=== PATIENT | female | born 1995 | race Caucasian/White ===

== ENCOUNTER → 2017-01-03 12:20 | Observation (INO) ==
[2017-01-03 11:29] LABS: Bilirubin,Urine Negative (Negative); Blood,Urine Negative (Negative); Clarity,Urine Cloudy (Clear); Color,Urine Dark Yellow (Yellow); Glucose,Urine (UA) Normal (Normal); Ketones,Urine Negative (Negative); Leukocyte Esterase,Urine Moderate (Negative); Nitrite,Urine Negative (Negative); Protein,Urine Trace mg/dL (Neg-Trace); Specific Gravity,Urine 1.028 (1.010-1.025); Urobilinogen,Urine Normal (Normal)
[2017-01-03 11:32] LABS: Bacteria,Urine Many per hpf (None-Few); Squamous Epithelial Cell,Urine Many per lpf (None-Few); WBC,Urine 50-100 per hpf (0-3)
[2017-01-03 11:58] LABS: RBC,Urine 0-3 per hpf (0-3)
[2017-01-03 11:59] LABS: Mucus,Urine Moderate (Few)
--- NOTE | 2017-01-03 12:09 | OB/GYN Progress Note ---
Date of Encounter: 01/03/17 Time of Encounter: 12:06 - Assessment and Plan (1) Acute cystitis during in second trimester Current Visit: Yes Status: Acute SSE reveals physiologic appearing discharge in the vaginal vault. SVE closed and thick. UA with moderate leukocytes, WBC's, and bacteria. I suspect her abdominal pain and leaking are related to a cystitis at this time. Rx Keflex. Discharge home with PTL and pyelonephritis precautions. (2) 26 weeks gestation of Current Visit: Yes Status: Acute Subjective - Subjective Principal diagnosis: leaking/ abdominal pain Interval history: 21 year-old presenting at 26 weeks gestation with c/o small amount leaking fluid/ vaginal discharge and intermittent sharp abdominal pains. She reports she woke during the night with the pain and that it is on both sides of her lower abdomen. She denies cramping or vaginal bleeding. Good FM. She states the leaking has been enough to cause her to wear a pad. No other complaints at this time. Antepartum ROS: loss of fluid, movement normal, no vaginal bleeding, no contractions Objective - Vital Signs Vital Signs: Intake and Output 01/02/17 01/03/17 01/03/17 23:59 07:59 15:59 Other: Weight 87.7 kg Patient Weight 01/03/17 23:59 Weight 87.7 kg - Exam FHR: auscultation normal FHR comments: FHT reassuring for GA Auscultation: bilateral: normal Abdomen: Present: soft Uterus: Present: normal. Absent: tenderness Cervical dilation: closed Cervix effacement: thick station: high Comments: SSE with small amount thin, white discharge in vaginal vault. FFN collected. negative nitrazine, negative pool, negative fern. - Labs Labs: Abnormal lab results Urine Clarity Cloudy (Clear) A 01/03/17 10:38 Ur Specific [place] 1.028 (1.010-1.025) H 01/03/17 10:38 Ur Leukocyte Esterase Moderate (Negative) H 01/03/17 10:38 Urine Microscopic WBC 50-100 per hpf (0-3) H 01/03/17 10:38 Ur Squamous Epith Cells Many per lpf (None-Few) H 01/03/17 10:38 Urine Bacteria Many per hpf (None-Few) H 01/03/17 10:38 Urine Mucus Moderate (Few) H 01/03/17 10:38 Ur Culture Indicated? YES (NO) A 01/03/17 10:38
== END | disposition home or self-care (01) ==
LOC: 1NENULAB
PROVIDERS: ADMIT Obstetrics & Gynecology; ATTEND Obstetrics & Gynecology

== ENCOUNTER → 2017-02-11 15:59 | Observation (INO) ==
--- NOTE | 2017-02-11 15:25 | Discharge Summary ---
Date of Encounter: 02/11/17 Time of Encounter: 15:26 - Discharge Diagnosis (1) 31 weeks gestation of Priority: Primary Status: Acute Comments: Patient admitted for observation - Discharge Medications Home Medications: Vitamins 1 tab PO DAILY 01/03/17 [History] HydrOXYzine Pamoate [Vistaril] 25 mg PO DAILY 02/11/17 [History] Allergies/Adverse Reactions: Allergies No Known Allergies Allergy (Verified 02/11/17 15:00) Date of admission: 02/11/17 14:32 Primary care physician: Malick Valles CNP Discharging clinician: Doretha Garcia Anticipated date of discharge: 02/11/17 - Patient Status Disposition: Home, Self-Care Condition: Good Functional capacity at discharge: independent ambulation - Discharge Instructions Follow Up With: Malick Valles CNP [Primary Care Provider] - - Diet and Activity Activity: increase activity as tolerated Diet: regular diet 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 Patient reports she fell back on her butt, did not hit her abdomen. Patient reports +FM. Denies LOF of Vaginal bleeding. No bruising or tenderness noted on exam. Time Attestation: Total time spent providing and/or coordinating discharge services: Time Spent: Less than 30 minutes Exam - Constitutional General appearance IM: A&O X 3, pleasant, answers questions appropriately - Respiratory Respiratory exam: Present: CTAB - Cardiovascular Cardiovascular exam IM: Present: RRR, +S1, +S2 - GI/Abdominal GI/Abdominal exam IM: normal bowel sounds, soft Additional comments: No bruising noted - Extremities Exam Extremities exam IM: Present: full ROM (135 bpm moderate variability +15x15 accels no decels noted. No contractions. RNST. ), normal capillary refill - VTE Reasons for not Prescribing Prophylaxis: Treatment not Indicated - Low risk for VTE
[2017-02-11 15:28] LABS: Bilirubin,Urine Negative (Negative); Blood,Urine Negative (Negative); Clarity,Urine Cloudy (Clear); Color,Urine Yellow (Yellow); Glucose,Urine (UA) Normal (Normal); Ketones,Urine Negative (Negative); Leukocyte Esterase,Urine Small (Negative); Nitrite,Urine Negative (Negative); PH,Urine 6.5 pH Units (5.0-8.0); Protein,Urine Negative (Neg-Trace); Specific Gravity,Urine 1.019 (1.010-1.025); Urobilinogen,Urine Normal (Normal)
[2017-02-11 15:30] LABS: Bacteria,Urine Moderate per hpf (None-Few); Hyaline Casts,Urine None Seen per lpf (None-Few); Squamous Epithelial Cell,Urine Many per lpf (None-Few); WBC,Urine 15-30 per hpf (0-3)
[2017-02-11 15:57] LABS: RBC,Urine 0-3 per hpf (0-3)
== END | disposition home or self-care (01) ==
LOC: 1NENULAB
PROVIDERS: ADMIT Obstetrics & Gynecology; ATTEND Obstetrics & Gynecology

== ENCOUNTER 2017-04-11 17:27 | Inpatient (IN) ==
[2017-04-11 17:05] LABS: Bilirubin,Urine Negative (Negative); Blood,Urine Negative (Negative); Clarity,Urine Cloudy (Clear); Color,Urine Dark Yellow (Yellow); Glucose,Urine (UA) Normal (Normal); Ketones,Urine Negative (Negative); Leukocyte Esterase,Urine Large (Negative); Nitrite,Urine Negative (Negative); Protein,Urine Negative (Neg-Trace); Specific Gravity,Urine 1.014 (1.010-1.025); Urobilinogen,Urine Normal (Normal)
[2017-04-11 17:07] LABS: Bacteria,Urine Many per hpf (None-Few); Immature Granulocytes % 0.7 % (0-4); Immature Platelets 28.2 % (1.1-6.1); Monocytes % 7.1 %; Squamous Epithelial Cell,Urine Many per lpf (None-Few); WBC,Urine TNTC per hpf (0-3)
[2017-04-11 17:11] LABS: Basophils % 0.2 %; Eosinophils # 0.1 K/mcL (0.0-0.6); Eosinophils % 0.6 %; Hemoglobin 13.2 g/dL (11.5-15.4); Lymphocytes # 1.4 K/mcL (0.6-4.6); Lymphocytes % 12.2 %; Mean Corpuscular HGB Conc 33.8 g/dL (31.6-35.5); Mean Corpuscular Hemoglobin 29.9 pg (28.0-33.3); Mean Corpuscular Volume 88.2 fL (83.0-100.0); Monocytes # 0.8 K/mcL (0.0-1.3); Platelet Count 142 K/mcL (140-400); Red Blood Count 4.42 M/mcL (3.82-4.97); Red Cell Distribution Width 15.3 % (11.5-14.5); Segmented Neutrophils % 79.2 %
[2017-04-11 17:12] LABS: Amphetamine Screen,Urine Negative ng/mL (Cutoff=1000); Barbiturate Screen,Urine Negative ng/mL (Cutoff=200); Benzodiazepines Screen,Urine Negative ng/mL (Cutoff=200); Cannabinoid Screen,Urine Negative ng/mL (Cutoff = 50); Cocaine Screen,Urine Negative ng/mL (Cutoff= 300); Opiate Screen,Urine Negative ng/mL (Cutoff=300); Phencyclidine Screen,Urine Negative ng/mL (Cutoff=25)
[2017-04-11 17:22] LABS: RBC,Urine 0-3 per hpf (0-3)
[~2017-04-11 17:27] MED LIST: Famotidine 20 MG/2 ML VIAL IVP PRN; Metoclopramide 10 MG/2 ML VIAL IVP PRN; Naloxone 0.4 MG/ML INJ IVP PRN; Ondansetron 4 MG/2 ML VIAL IVP PRN; Ringers Solution, Lactated 1,000 ML ONE
[2017-04-11 17:30] LABS: Large Platelets Present (Not Present); Platelet Estimate Normal (Normal); Reactive Lymphocytes Present (Not Present)
[2017-04-11] MEDS ORDERED: miSOPROStol 25 MCG TABLET PO PRN (17:38)
--- NOTE | 2017-04-11 17:43 | OB/GYN History & Physical ---
Date of Encounter: 04/11/17 Time of Encounter: 17:39 Assessment and Plan (1) 40 weeks gestation of Current visit: Yes Status: Acute (2) Non-reassuring heart rate or rhythm affecting management of fetus Current visit: Yes Status: Acute FHT have now improved but will admit for IOL given prolonged deceleration at 40 weeks. Plan for cytotec PO. GBS negative. Epidural when needed. AROM when able. Anticipate . History of Present Illness HPI: Ms. Hazel is a 21 year old female presenting at 40 weeks with initial complaint of increased mucus discharge. Initially on FHT tracing there was a prolonged decleration. IV fluid bolus given and tracing has improved but decision made to keep pt for IOL due to being 40 weeks with deceleration on tracing. Blood type O positive. Rubella immune Serologies and GBS negative. complicated by obesity. Past Med Surg Social Fam HX - Past Medical History Medical history: no medical history Psychiatric history: anxiety, bipolar, depression - Past Surgical History Surgical History: other - Social History Smoking Status: Never smoker Smokeless Tobacco Status: No Alcohol use: none Drug use: none - Family History Mother History Unknown: Yes Adopted: No Living Status: Still Living Hx Family Cardiac Disorders: No Hx Family Respiratory Disorders: Yes (COPD) Hx Family Cancer: No Hx Family GI Disorders: No Hx Family Endocrine Disorder: No Hx Family Neuromuscular Disorders: No Hx Family Neurologic Disorders: No Hx Family HEENT Disorders: No Hx Family Autoimmune Disorders: No Obstetrical History - Pregnancies : 1 Medications and Allergies Vitamins 1 tab PO DAILY 01/03/17 [History] HydrOXYzine Pamoate [Vistaril] 25 mg PO DAILY 02/11/17 [History] Fluoxetine 20 mg PO DAILY 04/01/17 [History] 3 Allergy/AdvReac Type Severity Reaction Status Date / Time No Known Allergies Allergy Verified 02/11/17 15:00 Review of System OB All systems PM: reviewed and no additional remarkable complaints except as stated Exam - Constitutional Constitutional: well developed, well nourished, no acute distress - HEENT HEENT: Mucus Membranes Moist - Lungs Respiratory exam: CTAB - Cardiovascular Cardiovascular exam: RRR, +S1, +S2 - Abdomen Abdomen: Present: gravid, non tender - Extremities Extremities exam: normal inspection - Vagina Vagina: Present: normal moisture - Cervix Dilation: 2 Effacement: 80 Station: -2 - Anus/Rectum Anus/Rectum: Present: normal perianal skin Results Result Diagrams: 04/11/17 16:14 Abnormal lab results WBC 11.4 K/mcL (4.3-11.1) H 04/11/17 16:14 RDW 15.3 % (11.5-14.5) H 04/11/17 16:14 Neutrophils # 9.0 K/mcL (1.6-8.9) H 04/11/17 16:14 Reactive Lymphocytes Present (Not Present) A 04/11/17 16:14 Large Platelets Present (Not Present) A 04/11/17 16:14 Immature Plt Fraction 28.2 % (1.1-6.1) H 04/11/17 16:14 Urine Clarity Cloudy (Clear) A 04/11/17 16:14 Ur Leukocyte Esterase Large (Negative) H 04/11/17 16:14 Urine Microscopic WBC TNTC per hpf (0-3) H 04/11/17 16:14 Ur Squamous Epith Cells Many per lpf (None-Few) H 04/11/17 16:14 Urine Bacteria Many per hpf (None-Few) H 04/11/17 16:14 Ur Culture Indicated? YES (NO) A 04/11/17 16:14 All other labs normal. - VTE Reasons for not Prescribing Prophylaxis: Treatment not Indicated - Low risk for VTE
[2017-04-11] MEDS ORDERED: Ringers Solution, Lactated 1,000 ML ONE (19:23)
[2017-04-11] MEDS ORDERED: *HR* Nalbuphine 20 MG/ML AMPUL IVP PRN (21:31)
--- NOTE | 2017-04-11 21:40 | OB Labor Progress Note ---
Date of Encounter: 04/11/17 Time of Encounter: 21:38 Labor Progress Note - Subjective Subjective: Pt sleeping prior to this CNM entering room. - Cervix Cervix: 2-3/80/-2 - Heart Tones Heart Tones: Category I - [place]: irregular UC - Plan Plan: Will continue with cytotec for IOL. AROM when able. Epidural when needed. Anticipate .
[2017-04-11] MEDS ORDERED: Ondansetron 4 MG/2 ML VIAL IVP PRN (22:18)
[2017-04-11] MEDS ORDERED: Bupivacaine-MPF 0.25% 10 ML VIAL EP ONE (22:18)
[2017-04-11] MEDS ORDERED: Naloxone 0.4 MG/ML INJ IVP PRN (22:18)
[2017-04-11] MEDS ORDERED: *HR* FentaNYL (PF) 100 MCG/2 ML VIAL EP ONE (22:18)
--- NOTE | 2017-04-11 22:22 | Anesthesia Evaluation PreOp ---
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 ATTENDANT History: Denies Any Significant HX Other Medical History: Denies Any Significant HX, Other (Depression, bipolar, anxiety) Anesthesia History: No Prior Anesthetic Complications, Past Anesthesia ( tonsillectomy) : Yes Alcohol Use: none Drug use: none Medications and Allergies Vitamins 1 tab PO DAILY 01/03/17 [History] HydrOXYzine Pamoate [Vistaril] 25 mg PO DAILY 02/11/17 [History] Fluoxetine 20 mg PO DAILY 04/01/17 [History] 3 Allergy/AdvReac Type Severity Reaction Status Date / Time No Known Allergies Allergy Verified 02/11/17 15:00 - Meds/Allergy Pre-op Review Medications Reviewed: Yes Allergies Reviewed: Yes Beta Blockers on Current Med List: No Anesthesia Results - Labs 04/11/17 16:14 Anesthesia Exam BP 119/78 P 96 T 97.9 R 16 Height: 5'0" Weight: 92.7kg NPO (# of Hours): 5 Pain Scale: 6 Pain Scale Used: Numeric (1 - 10) - HEENT Pupil (Motor): Pupils equal Mallampati: II Teeth: Normal Oral Opening: Greater than 3 - DRUM ATTENDANT LOC: Oriented DRUM ATTENDANT Motor: Normal RUE, Normal LUE, Normal RLE, Normal LLE, Normal Face DRUM ATTENDANT Sensory: Normal: RUE, LUE, RLE, LLE, Face - Cardiac Rhythm: Regular Murmur: None JVD: No Carotid Bruit: No - Pulmonary Breath Sounds: bilateral Clear Respiratory Effort: Symmetrical Anesthesia Assess/Plan ASA Score: 2 Modified [place] Scale for Level of Consciousness: Cooperative, oriented, and tranquil Anesthetic Plan: Regional Autologous Blood: No Monitoring Plan: Standard Monitors Recovery Plan: Other
[2017-04-11] MEDS ORDERED: *HR* FentaNYL (PF) 100 MCG/2 ML VIAL ONE (22:26)
[2017-04-11] MEDS ORDERED: Epidural Premix (fent/bupiv) 110 ML EP ONE (22:28)
[2017-04-11] MEDS ORDERED: Bupivacaine-MPF 0.25% 10 ML VIAL ONE (22:28)
[2017-04-11] MEDS ORDERED: Epidural Premix (fent/bupiv) 110 ML EP SCH (22:30)
--- NOTE | 2017-04-12 00:26 | Anesthesia Procedures ---
Date of Encounter: 04/12/17 Time of Encounter: 23:31 Procedures: Anesthesia - Epidural/Spinal Patient ID/Chart reviewed: Yes Patient examined: Yes OB Eval: Gestational age: 40 weeks OB Eval: : 1 OB Eval: Hx Para: 0 OB Eval: Dilated at (cm): 3 OB Eval: Contractions: Non-stressed pattern Consent Obtained: Yes Supplemental Oxygen: None/Room Air Site Prep: Aseptic Technique, Sterile prep and drape, Povidone-Iodine 1% Patient position: upright Local Anesthetic: Lidocaine 1% Amount of Local Anesthetic used: 3 Touhy Needle Gauge: 18 Touhy Needle Depth (cm): 7 Catheter Depth at Skin (cm): 15 Test Dose (1.5% Lido + Epi): Volume given (mls): 3 Test Dose Result: Negative Loading Dose: 0.25% Marcaine (mls): 10 Loading Dose: Fentanyl (mcg): 100 Loading Dose Administered: Thru Catheter Infusion Med: 0.125% Bupivacaine w/ 2 mcg/ml Fentanyl Infusion Rate (mls/hr): [address]: Tegaderm, Tape Interspace Used: L4-L5 Loss of Resistance (ANDREW): Yes Blood: No CSF: No Paresthesia: No Procedure: JEFFREY successfully placed 2nd pass. 1st pass ANDREW but difficulty threading catheter. 2nd attempt ANDREW and catheter thread with ease. No immediate complications noted. Negative test dose. VSS and FHT stable throughout. Vitals + FHT's: 2331 BP 119/78 P 96 R 16 0012 BP 115/71 P 79 R 16 FHT 140s
[2017-04-12] MEDS ORDERED: Oxytocin 20 units/ LR 1000 mL 20 UNIT/1,000 ML BAG IVC SCH ×2 (00:30→13:20)
--- NOTE | 2017-04-12 00:44 | OB Labor Progress Note ---
Date of Encounter: 04/12/17 Time of Encounter: 00:43 Labor Progress Note - Subjective Subjective: Pt comfortable with epidural. - Cervix Cervix: 4/80/-2 - Heart Tones Heart Tones: Category I - [place]: 2-3 minutes - Interventions Interventions: AROM for scant amount blood tinged fluid - Plan Plan: COntinue to monitor. Begin Pitocin augmentation. Frequent position changes. Anticipate .
[2017-04-12] MEDS: Ringers Solution, Lactated 1,000 ML IVC SCH ×2 (00:53→08:23)
[2017-04-12] MEDS ORDERED: ROPIVACAINE HCL/PF 0.5% 30 ML VIAL ONE (03:54)
[2017-04-12] MEDS ORDERED: *HR* FentaNYL (PF) 100 MCG/2 ML VIAL ONE (03:55)
[2017-04-12] MEDS ORDERED: Epidural Premix (fent/bupiv) 110 ML EP ONE (06:01)
--- NOTE | 2017-04-12 10:29 | OB Labor Progress Note ---
Date of Encounter: 04/12/17 Time of Encounter: 10:27 Labor Progress Note - Subjective Subjective: Patient reports feeling pressure. Patient pushing with contractions. - Heart Tones Heart Tones: 125 bpm moderate variability - [place]: 2-3 min apart - Interventions Interventions: Patient pushing with contractions. RN at bedside. - Plan Plan: Continue pushing with contractions.
[2017-04-12] MEDS ORDERED: Lidocaine 1% 20 ML MDV ONE (10:56)
--- NOTE | 2017-04-12 11:47 | OB/GYN Procedure Note ---
Delivery - Delivery Date: 04/12/17 Provider: Doretha Garcia Intrapartum events: none Delivery induction: AROM, oxytocin, misoprostol Delivery monitor: external FHT, external uterine, internal uterine Anesthesia: local, epidural Estimated Blood Loss: 300 - Infant (s) Infant A Delivery Date: 04/12/17 Infant Delivery Time: 11:01 Presentation: vertex Position: NUVIA Route of delivery: Gender: Female Viability: Viable Pounds: 8 Ounces: 6 at 1 minute: 8 at 5 mins: 9 Shoulder Dystocia: not encountered Specimens collected: cord blood Placenta: spontaneous Cord: 3 umbilical vessels - Repair Episiotomy: none Laceration Description: Periurethral (left periurethral repaired with 4-0 vicryl ), Perineal - 2nd Degree (repaired with 3-0 vicryl) - Complications Delivery complications: none - Disposition Mom disposition: stable in LDR [place] disposition: stable in LDR - Comments Comments: Called to LDR patient complete and has been pushing with RN. Patient was in stirrups and prepped for vaginal delivery. Under maternal effort patient spontaneously delivered a viable female over a second degree perineal laceration. Infant placed on maternal abdomen. Cord was clamped and cut after pulsation ceased. Second degree laceration repaired with 3-0 vicryl. Cord blood was collected. Spontaneous delivery of intact placenta. A left periuretheral was repaired with 4-0 vicryl. Patient tolerated well. 300 EBL. All counts correct. placed skin to skin. Both Mother and stable in LDR for recovery.
[2017-04-12] MEDS ORDERED: Benzocaine/Menthol 56 GM AEROSOL SPRAY TP PRN (13:20)
[2017-04-12] MEDS ORDERED: *HR* HYDROcodone/Acet 5/325 mg TABLET PO PRN (13:20)
[2017-04-12] MEDS ORDERED: Lanolin 7 G OINT...G. TP PRN (13:20)
[2017-04-12] MEDS ORDERED: Measles/Mumps/Rubella Vacc 0.5 ML VIAL SQ PRN (13:20)
[2017-04-12] MEDS ORDERED: Acetaminophen 325 MG TABLET PO PRN (13:20)
[2017-04-12] MEDS: Ibuprofen 600 MG TABLET PO PRN (15:12)
[2017-04-13] MEDS: Ibuprofen 600 MG TABLET PO PRN (06:28)
--- NOTE | 2017-04-13 08:46 | Discharge Summary ---
Date of Encounter: 04/13/17 Time of Encounter: 08:50 - Discharge Medications Home Medications: Vitamins 1 tab PO DAILY 01/03/17 [History] HydrOXYzine Pamoate [Vistaril] 25 mg PO DAILY 02/11/17 [History] Fluoxetine 20 mg PO DAILY 04/01/17 [History] Allergies/Adverse Reactions: 3 Allergy/AdvReac Type Severity Reaction Status Date / Time No Known Allergies Allergy Verified 02/11/17 15:00 Data Procedures and tests throughout hospitalization: Laboratory Tests 04/11/17 04/11/17 04/11/17 16:14 16:14 16:14 WBC 11.4 H RBC 4.42 Hgb 13.2 Hct 39.0 MCV 88.2 MCH 29.9 MCHC 33.8 RDW 15.3 H Plt Count 142 MPV TNP Immature Gran % 0.7 Seg Neutrophils % 79.2 Lymphocytes % 12.2 Monocytes % 7.1 Eosinophils % 0.6 Basophils % 0.2 Neutrophils # 9.0 H Lymphocytes # 1.4 Monocytes # 0.8 Eosinophils # 0.1 Basophils # 0.0 Reactive Lymphocytes Present A Platelet Estimate Normal Large Platelets Present A Immature Plt Fraction 28.2 H Urine Color Dark Yellow Urine Clarity Cloudy A Urine pH 6.0 Ur Specific [place] 1.014 Urine Protein Negative Urine Glucose (UA) Normal Urine Ketones Negative Urine Blood Negative Urine Nitrite Negative Urine Bilirubin Negative Urine Urobilinogen Normal Ur Leukocyte Esterase Large H Urine Microscopic RBC 0-3 Urine Microscopic WBC TNTC H Ur Squamous Epith Cells Many H Urine Bacteria Many H Ur Culture Indicated? YES A Urine Opiates Screen Negative Ur Barbiturates Screen Negative Ur Phencyclidine Scrn Negative Ur Amphetamines Screen Negative U Benzodiazepines Scrn Negative Urine Cocaine Screen Negative U Marijuana (THC) Screen Negative Date of admission: 04/11/17 17:27 Primary care physician: PCP NONE Consults: 04/12/17 13:20 Consult to Gear Inspector [CONS] Routine Comment: Vaginal delivery, consult needed Consult to Assembler Utility Buildings [CONS] Routine Reason for SW Consult: mother during , transportation issues Discharging clinician: Earl Haines Anticipated date of discharge: 04/13/17 - Discharge Instructions Follow Up With: NONE,PCP [Primary Care Provider] - Hospital Course Episiotomy: none Time Attestation: Total time spent providing and/or coordinating discharge services: - VTE Reasons for not Prescribing Prophylaxis: Treatment not Indicated - Low risk for VTE Exam - Constitutional Vitals: Temp Pulse Resp BP Pulse Ox 98 F 97 20 99/59 97 04/13/17 06:38 04/13/17 06:38 04/13/17 06:38 04/13/17 06:38 04/13/17 06:38
--- NOTE | 2017-04-13 08:50 | Discharge Summary ---
Date of Encounter: 04/13/17 Time of Encounter: 08:30 - Discharge Diagnosis (1) Status post vaginal delivery Priority: Primary Status: Acute - Discharge Medications Prescriptions: Ibuprofen [Motrin] 600 mg PO Q6HR PRN #30 tablet PRN Reason: Cramping Home Medications: Vitamins 1 tab PO DAILY 01/03/17 [History] HydrOXYzine Pamoate [Vistaril] 25 mg PO DAILY 02/11/17 [History] Fluoxetine 20 mg PO DAILY 04/01/17 [History] Ibuprofen [Motrin] 600 mg PO Q6HR PRN #30 tablet 04/13/17 [Rx] Allergies/Adverse Reactions: 3 Allergy/AdvReac Type Severity Reaction Status Date / Time No Known Allergies Allergy Verified 02/11/17 15:00 Data Procedures and tests throughout hospitalization: Laboratory Tests 04/11/17 04/11/17 04/11/17 16:14 16:14 16:14 WBC 11.4 H RBC 4.42 Hgb 13.2 Hct 39.0 MCV 88.2 MCH 29.9 MCHC 33.8 RDW 15.3 H Plt Count 142 MPV TNP Immature Gran % 0.7 Seg Neutrophils % 79.2 Lymphocytes % 12.2 Monocytes % 7.1 Eosinophils % 0.6 Basophils % 0.2 Neutrophils # 9.0 H Lymphocytes # 1.4 Monocytes # 0.8 Eosinophils # 0.1 Basophils # 0.0 Reactive Lymphocytes Present A Platelet Estimate Normal Large Platelets Present A Immature Plt Fraction 28.2 H Urine Color Dark Yellow Urine Clarity Cloudy A Urine pH 6.0 Ur Specific [place] 1.014 Urine Protein Negative Urine Glucose (UA) Normal Urine Ketones Negative Urine Blood Negative Urine Nitrite Negative Urine Bilirubin Negative Urine Urobilinogen Normal Ur Leukocyte Esterase Large H Urine Microscopic RBC 0-3 Urine Microscopic WBC TNTC H Ur Squamous Epith Cells Many H Urine Bacteria Many H Ur Culture Indicated? YES A Urine Opiates Screen Negative Ur Barbiturates Screen Negative Ur Phencyclidine Scrn Negative Ur Amphetamines Screen Negative U Benzodiazepines Scrn Negative Urine Cocaine Screen Negative U Marijuana (THC) Screen Negative Date of admission: 04/11/17 17:27 Primary care physician: PCP NONE Consults: 04/12/17 13:20 Consult to Pullman Car Repairer [CONS] Routine Comment: Vaginal delivery, consult needed Consult to Capacity Planning Manager [CONS] Routine Reason for SW Consult: mother during , transportation issues Discharging clinician: Earl Haines Anticipated date of discharge: 04/13/17 - Patient Status Disposition: Home, Self-Care Condition: Good Functional capacity at discharge: independent ambulation Overall status at discharge: patient is progressing back to baseline - Discharge Instructions Follow Up With: NONE,PCP [Primary Care Provider] - Allen Archuleta MD [Partnered Physician] - - Diet and Activity Activity: increase activity as tolerated Diet: advance to your usual diet Hospital Course Procedures: Status post vaginal delivery Reason for admission: active labor Delivery: Episiotomy: none Discharge diagnosis: IUP at term delivered [place] baby: female Hospital course: Patient is a 21-year-old female who presented to labor and delivery in labor. Patient delivered vaginally without any complications. Patient was wanting to go home on hospital day #1 should be discharged home with prescription for Motrin 600 mg and she will follow up in the office in 4 weeks Time Attestation: Total time spent providing and/or coordinating discharge services: Exam - Constitutional Vitals: Temp Pulse Resp BP Pulse Ox 98 F 97 20 99/59 97 04/13/17 06:38 04/13/17 06:38 04/13/17 06:38 04/13/17 06:38 04/13/17 06:38 General appearance IM: A&O X 3, no acute distress, answers questions appropriately - Respiratory Respiratory exam: Present: CTAB - Cardiovascular Cardiovascular exam IM: Present: RRR - GI/Abdominal GI/Abdominal exam IM: normal bowel sounds - Rectal Rectal exam: deferred - Uterus Position: At Umbilicus
[2017-04-13] MEDS ORDERED: Prenatal Vit/FA 1 EACH TABLET PO SCH (09:00)
[2017-04-13 17:54] VITALS: BP 117/76
== END 2017-04-13 17:15 | disposition home or self-care (01) | DRG 560 ==
LOC: 1NENULAB → 1NENUOBS 04-12 13:12
PROVIDERS: ADMIT Obstetrics & Gynecology; ATTEND Obstetrics & Gynecology

== ENCOUNTER → 2018-05-10 16:33 | Observation (INO) ==
[2018-05-10 14:10] LABS: Bilirubin,Urine Negative (Negative); Blood,Urine Negative (Negative); Color,Urine Yellow (Yellow); Glucose,Urine (UA) Normal (Normal); Ketones,Urine Negative (Negative); Leukocyte Esterase,Urine Large (Negative); Nitrite,Urine Negative (Negative); PH,Urine 7.5 pH Units (5.0-8.0); Protein,Urine Negative (Neg-Trace); Specific Gravity,Urine 1.013 (1.010-1.025); Urobilinogen,Urine Normal (Normal)
[2018-05-10 14:13] LABS: Bacteria,Urine Many per hpf (None-Few); Hyaline Casts,Urine None Seen per lpf (None-Few); RBC,Urine 0-3 per hpf (0-3); Squamous Epithelial Cell,Urine Many per lpf (None-Few); WBC,Urine 50-100 per hpf (0-3)
[2018-05-10 14:15] LABS: Clarity,Urine Hazy (Clear)
[2018-05-10 14:19] LABS: Amphetamine Screen,Urine Negative ng/mL (Cutoff=1000); Barbiturate Screen,Urine Negative ng/mL (Cutoff=200); Benzodiazepines Screen,Urine Negative ng/mL (Cutoff=200); Cannabinoid Screen,Urine Negative ng/mL (Cutoff = 50); Cocaine Screen,Urine Negative ng/mL (Cutoff= 300); Opiate Screen,Urine Negative ng/mL (Cutoff=300); Phencyclidine Screen,Urine Negative ng/mL (Cutoff=25)
--- NOTE | 2018-05-10 15:53 | Discharge Summary ---
Date of Encounter: 05/10/18 Time of Encounter: 15:55 - Discharge Diagnosis (1) Abdominal pain during in third trimester Priority: Secondary Status: Acute Comments: Admit observation for labor evaluation Continuous monitoring, rare contraction with periods of uterine irritability. Cervix closed thick and high Vaginosis panel collected, will treat if needed (2) 31 weeks gestation of Priority: Primary Status: Acute Comments: Admit to observation for labor evaluation (3) Non-stress test reactive Priority: Secondary Status: Acute Comments: FHR 130 bpm, moderate variability, +10 x 10 accelerations, no decelerations. Rare contraction, occasional uterine irritability noted on toco - Discharge Medications Home Medications: Vitamins 1 tab PO DAILY 01/03/17 [History] Allergies/Adverse Reactions: Allergy/AdvReac Type Severity Reaction Status Date / Time No Known Allergies Allergy Verified 05/10/18 13:27 Data Procedures and tests throughout hospitalization: Laboratory Tests 05/10/18 05/10/18 13:30 13:30 Urine Color Yellow Urine Clarity Hazy A Urine pH 7.5 Ur Specific [place] 1.013 Urine Protein Negative Urine Glucose (UA) Normal Urine Ketones Negative Urine Blood Negative Urine Nitrite Negative Urine Bilirubin Negative Urine Urobilinogen Normal Ur Leukocyte Esterase Large H Urine Microscopic RBC 0-3 Urine Microscopic WBC 50-100 H Ur Squamous Epith Cells Many H Urine Bacteria Many H Hyaline Casts None Seen Ur Culture Indicated? NO. A Urine Opiates Screen Negative Ur Barbiturates Screen Negative Ur Phencyclidine Scrn Negative Ur Amphetamines Screen Negative U Benzodiazepines Scrn Negative Urine Cocaine Screen Negative U Marijuana (THC) Screen Negative Ur Drug Screen Interp See Below Labs on day of discharge: Labs from last 24 hours 05/10/18 05/10/18 13:30 13:30 Urine Color Yellow Urine Clarity Hazy A Urine pH 7.5 Ur Specific [place] 1.013 Urine Protein Negative Urine Glucose (UA) Normal Urine Ketones Negative Urine Blood Negative Urine Nitrite Negative Urine Bilirubin Negative Urine Urobilinogen Normal Ur Leukocyte Esterase Large H Urine Microscopic RBC 0-3 Urine Microscopic WBC 50-100 H Ur Squamous Epith Cells Many H Urine Bacteria Many H Hyaline Casts None Seen Ur Culture Indicated? NO. A Urine Opiates Screen Negative Ur Barbiturates Screen Negative Ur Phencyclidine Scrn Negative Ur Amphetamines Screen Negative U Benzodiazepines Scrn Negative Urine Cocaine Screen Negative U Marijuana (THC) Screen Negative Ur Drug Screen Interp See Below Date of admission: 05/10/18 13:07 Discharging clinician: Bethany Angel Anticipated date of discharge: 05/10/18 - Patient Status Disposition: Home, Self-Care Condition: Good Functional capacity at discharge: independent ambulation Overall status at discharge: patient is progressing back to baseline - Discharge Instructions Follow Up With: Allen Archuleta MD [Partnered Physician] - Additional Instructions: Will call with results of vaginosis panel - Diet and Activity Activity: resume usual activities as tolerated Diet: regular diet 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 States the pain comes and goes and is not constant. Reports positive movement, denies vaginal bleeding or leakage of fluid aside from normal white vaginal discharge. Urinalysis collected results show contamination. Will collect vaginosis panel and treat if indicated. heart monitoring appropriate for gestational age. Discussed urine results with Dr. Doty. We will send patient home and she is to follow-up as previously scheduled with Dr. Archuleta on 05 16 2018. Time Attestation: Total time spent providing and/or coordinating discharge services: Time Spent: Less than 30 minutes Exam - Constitutional General appearance IM: A&O X 3, pleasant, no acute distress, obese, answers questions appropriately - Respiratory Respiratory exam: Present: CTAB - Cardiovascular Cardiovascular exam IM: Present: RRR, +S1, +S2 - GI/Abdominal GI/Abdominal exam IM: normal bowel sounds, soft - Rectal Rectal exam: deferred - Extremities Exam Extremities exam IM: Present: full ROM, normal capillary refill, normal inspection, warm - Neurological Exam Neurological exam: alert, normal gait, oriented X3 - VTE Reasons for not Prescribing Prophylaxis: Treatment not Indicated - Low risk for VTE
[2018-05-10 17:31] LABS: Candida DNA Not Detected (Not Detect); Gardnerella DNA Not Detected (Not Detect); Trichomonas DNA Not Detected (Not Detect)
== END | disposition home or self-care (01) ==
LOC: 1NENULAB
PROVIDERS: ADMIT Registered Nurse; ATTEND Registered Nurse

== ENCOUNTER 2018-06-09 23:52 | Observation (INO) ==
[2018-06-10 00:28] LABS: Bilirubin,Urine Negative (Negative); Blood,Urine Negative (Negative); Clarity,Urine Cloudy (Clear); Color,Urine Yellow (Yellow); Glucose,Urine (UA) Normal (Normal); Ketones,Urine Negative (Negative); Leukocyte Esterase,Urine Large (Negative); Nitrite,Urine Negative (Negative); Protein,Urine Negative (Neg-Trace); Specific Gravity,Urine 1.005 (1.010-1.025); Urobilinogen,Urine Normal (Normal)
[2018-06-10 00:30] LABS: Bacteria,Urine Many per hpf (None-Few); Hyaline Casts,Urine None Seen per lpf (None-Few); RBC,Urine 0-3 per hpf (0-3); Squamous Epithelial Cell,Urine Many per lpf (None-Few); WBC,Urine 30-50 per hpf (0-3)
[2018-06-10 00:36] LABS: Amphetamine Screen,Urine Negative ng/mL (Cutoff=1000); Barbiturate Screen,Urine Negative ng/mL (Cutoff=200); Benzodiazepines Screen,Urine Negative ng/mL (Cutoff=200); Cannabinoid Screen,Urine Negative ng/mL (Cutoff = 50); Cocaine Screen,Urine Negative ng/mL (Cutoff= 300); Opiate Screen,Urine Negative ng/mL (Cutoff=300); Phencyclidine Screen,Urine Negative ng/mL (Cutoff=25)
[2018-06-10 01:37] LABS: Candida DNA Not Detected (Not Detect); Gardnerella DNA Not Detected (Not Detect); Trichomonas DNA Not Detected (Not Detect)
--- NOTE | 2018-06-10 01:47 | Discharge Summary ---
Date of Encounter: 06/10/18 Time of Encounter: 01:47 - Discharge Diagnosis (1) 36 weeks gestation of Priority: Primary Status: Acute Comments: Follow-up Dr. Archuleta as scheduled labor precautions discussed Discharge home (2) Abdominal cramping affecting Priority: Secondary Status: Acute Comments: Increase hydration UA negative Vaginosis panel negative. - Discharge Medications Home Medications: Vitamins 1 tab PO DAILY 01/03/17 [History] Allergies/Adverse Reactions: Allergy/AdvReac Type Severity Reaction Status Date / Time No Known Allergies Allergy Verified 06/10/18 00:09 Data Procedures and tests throughout hospitalization: Laboratory Tests 06/10/18 06/10/18 06/10/18 00:19 00:19 00:40 Urine Color Yellow Urine Clarity Cloudy A Urine pH 7.0 Ur Specific [place] 1.005 L Urine Protein Negative Urine Glucose (UA) Normal Urine Ketones Negative Urine Blood Negative Urine Nitrite Negative Urine Bilirubin Negative Urine Urobilinogen Normal Ur Leukocyte Esterase Large H Urine Microscopic RBC 0-3 Urine Microscopic WBC 30-50 H Ur Squamous Epith Cells Many H Urine Bacteria Many H Hyaline Casts None Seen Ur Culture Indicated? NO. A Urine Opiates Screen Negative Ur Barbiturates Screen Negative Ur Phencyclidine Scrn Negative Ur Amphetamines Screen Negative U Benzodiazepines Scrn Negative Urine Cocaine Screen Negative U Marijuana (THC) Screen Negative Ur Drug Screen Interp See Below Anna species DNA Not Detected Gardnerella DNA Probe Not Detected Trichomonas DNA Probe Not Detected Labs on day of discharge: Labs from last 24 hours 06/10/18 06/10/18 06/10/18 00:40 00:19 00:19 Urine Color Yellow Urine Clarity Cloudy A Urine pH 7.0 Ur Specific [place] 1.005 L Urine Protein Negative Urine Glucose (UA) Normal Urine Ketones Negative Urine Blood Negative Urine Nitrite Negative Urine Bilirubin Negative Urine Urobilinogen Normal Ur Leukocyte Esterase Large H Urine Microscopic RBC 0-3 Urine Microscopic WBC 30-50 H Ur Squamous Epith Cells Many H Urine Bacteria Many H Hyaline Casts None Seen Ur Culture Indicated? NO. A Urine Opiates Screen Negative Ur Barbiturates Screen Negative Ur Phencyclidine Scrn Negative Ur Amphetamines Screen Negative U Benzodiazepines Scrn Negative Urine Cocaine Screen Negative U Marijuana (THC) Screen Negative Ur Drug Screen Interp See Below Anna species DNA Not Detected Gardnerella DNA Probe Not Detected Trichomonas DNA Probe Not Detected Date of admission: 06/09/18 23:52 Discharging clinician: Ramya León Anticipated date of discharge: 06/10/18 - Patient Status Disposition: Home, Self-Care Condition: Good Functional capacity at discharge: independent ambulation Overall status at discharge: patient is progressing back to baseline - Discharge Instructions Follow Up With: Allen Archuleta MD [Partnered Physician] - - Diet and Activity Activity: increase activity as tolerated Diet: regular diet Hospital Course [employer] Reason for admission: other Discharge diagnosis: other Hospital course: Ms. Hazel reports vaginal pressure and abdominal cramping since earlier today . She endorses good fm and denies lof, vb, ctx. Urine and vaginosis panel studies were negative. Follow up as scheduled. Time Attestation: Total time spent providing and/or coordinating discharge services: Time Spent: Less than 30 minutes Exam - Constitutional General appearance IM: A&O X 3 - Respiratory Respiratory exam: Present: CTAB - Cardiovascular Cardiovascular exam IM: Present: RRR, +S1, +S2 - GI/Abdominal GI/Abdominal exam IM: normal bowel sounds, no peritoneal signs - Rectal Rectal exam: deferred - Uterine Tone: Firm - Extremities Exam Extremities exam IM: Present: normal capillary refill, normal inspection, radial pulses palpable and symmetrical - Neurological Exam Neurological exam: alert, CN II-XII intact, normal gait, oriented X3, reflexes normal, no focal deficits, strengths equal and symetr throughout - VTE Reasons for not Prescribing Prophylaxis: Treatment not Indicated - Low risk for VTE
== END 2018-06-10 01:55 | disposition home or self-care (01) ==
LOC: 1NENULAB
PROVIDERS: ADMIT Advanced Practice Midwife; ATTEND Advanced Practice Midwife

== ENCOUNTER → 2018-06-18 19:36 | Observation (INO) ==
--- NOTE | 2018-06-18 18:47 | OB/GYN Progress Note ---
Date of Encounter: 06/18/18 Time of Encounter: 18:41 - Assessment and Plan (1) Fall Current Visit: Yes Status: Acute Pt denies complaints at this. Good FM now. Plan to observe 4 hours from fall and then discharge home with precautions. POC discussed with Dr. Garzon. Qualifiers: Encounter type: initial encounter Qualified Code(s): W19.XXXA - Unspecified fall, initial encounter (2) 37 weeks gestation of Current Visit: No Status: Acute (3) NST (non-stress test) reactive on surveillance Current Visit: No Status: Acute Subjective - Subjective Interval history: 22 year-old presenting at 37w3d s/p fall at 1530 this afternoon. She reports she tripped over her s/o legs and landed on her left side. She denies contractions other than occassional clementina bennett. No leaking or bleeding. Decreased movement prior to arrival to triage but now good FM in triage. Blood type O positive. Antepartum ROS: movement normal, no loss of fluid, no vaginal bleeding, no contractions Objective - Vital Signs Vital Signs: Intake and Output 06/18/18 06/18/18 06/18/18 07:59 15:59 23:59 Other: Weight 93.2 kg Patient Weight 06/18/18 23:59 Weight 93.2 kg - Exam FHR: category 1 FHR comments: NST reactive 135 BPM Auscultation: bilateral: normal Abdomen: Present: soft, gravid Uterus: Absent: tenderness Cervical dilation: 2-3/80/-2
== END | disposition home or self-care (01) ==
LOC: 1NENULAB
PROVIDERS: ADMIT Registered Nurse; ATTEND Registered Nurse

== ENCOUNTER → 2018-06-23 10:05 | Observation (INO) ==
[2018-06-22 16:05] LABS: Amphetamine Screen,Urine Negative ng/mL (Cutoff=1000); Barbiturate Screen,Urine Negative ng/mL (Cutoff=200); Benzodiazepines Screen,Urine Negative ng/mL (Cutoff=200); Cannabinoid Screen,Urine Negative ng/mL (Cutoff = 50); Cocaine Screen,Urine Negative ng/mL (Cutoff= 300); Opiate Screen,Urine Negative ng/mL (Cutoff=300); Phencyclidine Screen,Urine Negative ng/mL (Cutoff=25)
--- NOTE | 2018-06-22 17:16 | OB/GYN Progress Note ---
Date of Encounter: 06/22/18 Time of Encounter: 17:14 - Assessment and Plan (1) 38 weeks gestation of Current Visit: No Status: Acute Admitted to observation for complaints of vaginal discharge (2) Vaginal discharge during in third trimester Current Visit: No Status: Acute Patient reports thick green-yellow vaginal discharge since Saturday. Denies itching Vaginosis panel collected and sent to lab GC chlamydia collected and sent to lab Will notify patient of results return abnormal and treat as appropriate (3) Non-stress test reactive Current Visit: No Status: Acute FHR 140 bpm, moderate variability, 15 x 15 accelerations, no decelerations. Subjective - Subjective Principal diagnosis: Vaginal discharge Interval history: Danielle presents today with complaints of vaginal discharge green and yellow in color. She states it is thick and comes out in "clumps." She states this is been happening since Saturday. She had a routine visit with Dr. Archuleta on Saturday as well and was 3 cm at that visit. She is 3-4 cm on arrival today with no cervical change after greater than one hour. Antepartum ROS: movement normal, no loss of fluid, no vaginal bleeding Objective - Vital Signs Vital Signs: Intake and Output 06/22/18 06/22/18 06/22/18 07:59 15:59 23:59 Other: Weight 93.3 kg Patient Weight 06/22/18 23:59 Weight 93.3 kg - Exam FHR: category 1 FHR comments: 140 bpm, moderate variability, +15x15 accels no decels. Auscultation: bilateral: normal Abdomen: Present: normal appearance, soft, gravid Uterus: Present: normal Cervical dilation: 3-4 Cervix effacement: Thick station: -3 Comments: No change in >1 hr
[2018-06-22 18:31] LABS: Candida DNA Not Detected (Not Detect); Gardnerella DNA Not Detected (Not Detect); Trichomonas DNA Not Detected (Not Detect)
== END | disposition home or self-care (01) ==
LOC: 1NENULAB
PROVIDERS: ADMIT Registered Nurse; ATTEND Registered Nurse

== ENCOUNTER → 2018-06-25 15:54 | Observation (INO) ==
[2018-06-25 14:19] LABS: Amphetamine Screen,Urine Negative ng/mL (Cutoff=1000); Barbiturate Screen,Urine Negative ng/mL (Cutoff=200); Benzodiazepines Screen,Urine Negative ng/mL (Cutoff=200); Cannabinoid Screen,Urine Negative ng/mL (Cutoff = 50); Cocaine Screen,Urine Negative ng/mL (Cutoff= 300); Opiate Screen,Urine Negative ng/mL (Cutoff=300); Phencyclidine Screen,Urine Negative ng/mL (Cutoff=25)
--- NOTE | 2018-06-25 15:52 | OB/GYN Progress Note ---
Date of Encounter: 06/25/18 Time of Encounter: 15:50 - Assessment and Plan (1) False labor Current Visit: Yes Status: Acute SVE with no change per RN. Discharge home with return precautions. (2) 38 weeks gestation of Current Visit: Yes Status: Acute Subjective - Subjective Interval history: 22 year-old presenting at 38w3d with c/o contractions. No leaking or bleeding. Good FM. She does report some "mucus plug" with brown tinge. No other complaints. Antepartum ROS: movement normal, contractions, no loss of fluid, no vaginal bleeding Objective - Exam FHR: category 1 FHR comments: NST reactive Auscultation: bilateral: normal Abdomen: Present: soft, gravid Uterus: Absent: tenderness Cervical dilation: 4 cm per RN, no change on repeat exam
== END | disposition home or self-care (01) ==
LOC: 1NENULAB
PROVIDERS: ADMIT Registered Nurse; ATTEND Registered Nurse

== ENCOUNTER → 2019-11-30 21:41 | Observation (INO) ==
[2019-11-30 20:38] VITALS: BP 115/70
[2019-11-30 20:57] LABS: Bilirubin,Urine Negative (Negative); Blood,Urine Negative (Negative); Clarity,Urine Cloudy (Clear); Color,Urine Yellow (Yellow); Glucose,Urine (UA) Normal (Normal); Ketones,Urine Negative (Negative); Leukocyte Esterase,Urine Moderate (Negative); Nitrite,Urine Negative (Negative); PH,Urine 6.5 pH Units (5.0-8.0); Protein,Urine Negative (Neg-Trace); Specific Gravity,Urine 1.013 (1.010-1.025); Urobilinogen,Urine Normal (Normal)
[2019-11-30 20:59] LABS: Bacteria,Urine Few per hpf (None-Few); Hyaline Casts,Urine None Seen per lpf (None-Few); RBC,Urine 0-3 per hpf (0-3); Squamous Epithelial Cell,Urine Many per lpf (None-Few); WBC,Urine 15-30 per hpf (0-3)
== END | disposition home or self-care (01) ==
LOC: 1NENULAB
PROVIDERS: ADMIT Advanced Practice Midwife; ATTEND Advanced Practice Midwife

== ENCOUNTER → 2019-12-07 19:32 | Observation (INO) ==
[2019-12-07 17:59] LABS: Bilirubin,Urine Negative (Negative); Blood,Urine Negative (Negative); Clarity,Urine Cloudy (Clear); Color,Urine Yellow (Yellow); Glucose,Urine (UA) Normal (Normal); Ketones,Urine Negative (Negative); Leukocyte Esterase,Urine Small (Negative); Nitrite,Urine Negative (Negative); Protein,Urine Negative (Neg-Trace); Specific Gravity,Urine 1.026 (1.010-1.025); Urobilinogen,Urine Normal (Normal)
[2019-12-07 18:01] LABS: Bacteria,Urine Few per hpf (None-Few); Hyaline Casts,Urine None Seen per lpf (None-Few); RBC,Urine 0-3 per hpf (0-3); Squamous Epithelial Cell,Urine Many per lpf (None-Few); WBC,Urine 15-30 per hpf (0-3)
[2019-12-07 19:18] LABS: Candida DNA Not Detected (Not Detect); Gardnerella DNA DETECTED (Not Detect); Trichomonas DNA Not Detected (Not Detect)
== END | disposition home or self-care (01) ==
LOC: 1NENULAB
PROVIDERS: ADMIT Obstetrics & Gynecology; ATTEND Obstetrics & Gynecology

== ENCOUNTER → 2020-01-13 12:55 | Observation (INO) ==
[2020-01-13 10:44] VITALS: BP 122/70
[2020-01-13 10:59] LABS: Bacteria,Urine Few per hpf (None-Few); Bilirubin,Urine Negative (Negative); Blood,Urine Negative (Negative); Clarity,Urine Turbid (Clear); Color,Urine Light-Yellow (Yellow); Glucose,Urine (UA) Normal (Normal); Ketones,Urine Negative (Negative); Leukocyte Esterase,Urine Large (Negative); Mucus,Urine Few per lpf (None-Few); Nitrite,Urine Negative (Negative); PH,Urine 7.5 pH Units (5.0-8.0); Protein,Urine Negative (Neg-Trace); RBC,Urine 0-3 per hpf (0-3); Specific Gravity,Urine 1.011 (1.010-1.025); Squamous Epithelial Cell,Urine Moderate per hpf (None-Few); Urobilinogen,Urine Normal (Normal); WBC,Urine 50-100 per hpf (0-3)
== END | disposition home or self-care (01) ==
LOC: 1NENULAB
PROVIDERS: ADMIT Obstetrics & Gynecology; ATTEND Obstetrics & Gynecology

== ENCOUNTER → 2020-01-21 21:30 | Observation (INO) | END | disposition home or self-care (01) | LOC: 1NENULAB | PROVIDERS: ADMIT Obstetrics & Gynecology; ATTEND Obstetrics & Gynecology ==

== ENCOUNTER 2020-01-26 05:53 | Inpatient (IN) ==
[2020-01-26] MEDS ORDERED: Famotidine 20 MG/2 ML VIAL IVP PRN (06:29)
[2020-01-26] MEDS ORDERED: Metoclopramide 10 MG/2 ML VIAL IVP PRN (06:29)
[2020-01-26] MEDS ORDERED: Naloxone 0.4 MG/ML INJ IVP PRN (06:29)
[2020-01-26] MEDS ORDERED: Oxytocin 20 units/ LR 1000 mL 20 UNIT/1,000 ML BAG IVC SCH ×2 (06:30→15:59)
[2020-01-26] MEDS ORDERED: EPHEDrine 50 MG/ML VIAL IVP PRN (06:54)
[2020-01-26] MEDS ORDERED: Epidural Premix (fent/bupiv) 110 ML EP SCH (07:00)
[2020-01-26 07:01] LABS: Basophils % 0.2 %; Eosinophils # 0.1 K/mcL (0.0-0.6); Eosinophils % 0.9 %; Hematocrit 33.1 % (35.3-44.9); Hemoglobin 10.3 g/dL (11.5-15.4); Lymphocytes # 1.5 K/mcL (0.6-4.6); Mean Corpuscular HGB Conc 31.1 g/dL (31.6-35.5); Mean Corpuscular Hemoglobin 26.8 pg (28.0-33.3); Monocytes # 0.6 K/mcL (0.0-1.3); Monocytes % 6.5 %; Platelet Count 132 K/mcL (140-400); Red Blood Count 3.85 M/mcL (3.82-4.97); Red Cell Distribution Width 17.2 % (11.5-14.5); Segmented Neutrophils % 75.4 %; White Blood Count 9.3 K/mcL (4.3-11.1)
[2020-01-26 07:10] LABS: Amphetamine Screen,Urine Negative ng/mL (Cutoff=1000); Barbiturate Screen,Urine Positive ng/mL (Cutoff=200)
[2020-01-26 07:11] LABS: Benzodiazepines Screen,Urine Negative ng/mL (Cutoff=300); Cannabinoid Screen,Urine Negative ng/mL (Cutoff = 50); Cocaine Screen,Urine Negative ng/mL (Cutoff= 300); Opiate Screen,Urine Negative ng/mL (Cutoff=300); Phencyclidine Screen,Urine Negative ng/mL (Cutoff=25)
[2020-01-26 07:37] LABS: Platelet Estimate Normal (Normal); Toxic Granulation Present (Not Present)
[2020-01-26] MEDS: Ringers Solution, Lactated 1,000 ML IVC SCH ×2 (07:45→09:52)
[2020-01-26] MEDS ORDERED: Ondansetron 4 MG/2 ML VIAL ONE (10:09)
[2020-01-26] MEDS ORDERED: Ondansetron 4 MG/2 ML VIAL IVP PRN (10:12)
[2020-01-26] MEDS ORDERED: *HR* Phenylephrine 10 MG/ML VIAL ONE (10:16)
[2020-01-26] MEDS ORDERED: *HR* Ropivacaine/PF 0.5% 20 ML VIAL ONE (13:25)
[2020-01-26] MEDS ORDERED: Ropivacaine/PF 0.2% 20 ML VIAL ONE (13:25)
[2020-01-26] MEDS ORDERED: Oxytocin 20 units/ LR 1000 mL 20 UNIT/1,000 ML BAG IVC ONE (15:59)
[2020-01-26] MEDS ORDERED: Rho Immune Globulin 1,500 UNIT SYRINGE IM PRN (15:59)
[2020-01-26] MEDS ORDERED: Acetaminophen 325 MG TABLET PO PRN (15:59)
[2020-01-26] MEDS ORDERED: Measles/Mumps/Rubella Vacc 0.5 ML VIAL SQ PRN (15:59)
[2020-01-26] MEDS: Ibuprofen 600 MG TABLET PO PRN (17:13)
[2020-01-27] MEDS: Ibuprofen 600 MG TABLET PO PRN ×3 (00:45→14:45)
[2020-01-27 06:04] LABS: Basophils % 0.2 %; Immature Granulocytes % 0.7 % (0-4)
[2020-01-27 06:06] LABS: Eosinophils # 0.1 K/mcL (0.0-0.6); Eosinophils % 0.9 %; Hematocrit 32.3 % (35.3-44.9); Hemoglobin 9.8 g/dL (11.5-15.4); Immature Platelets 24.9 % (1.1-6.1); Lymphocytes # 1.6 K/mcL (0.6-4.6); Lymphocytes % 15.6 %; Mean Corpuscular HGB Conc 30.3 g/dL (31.6-35.5); Mean Corpuscular Hemoglobin 26.5 pg (28.0-33.3); Mean Corpuscular Volume 87.3 fL (83.0-100.0); Monocytes # 0.7 K/mcL (0.0-1.3); Monocytes % 6.9 %; Nucleated Red Blood Cells 0.2 /100 WBC (0); Platelet Count 107 K/mcL (140-400); Segmented Neutrophils % 75.7 %; White Blood Count 10.5 K/mcL (4.3-11.1)
[2020-01-27 07:57] VITALS: BP 129/85
[2020-01-27] MEDS ORDERED: Prenatal Vit/FA 1 EACH TABLET PO SCH (09:00)
[2020-01-27] MEDS ORDERED: Lidocaine 1% 20 ML MDV ID ONE (12:09)
[2020-01-27] MEDS ORDERED: Etonogestrel 68 MG IMPLANT IL ONE (12:10)
== END 2020-01-27 14:50 | disposition home or self-care (01) | DRG 806 ==
LOC: 1NENULAB 05:53 → 1NENUOBS 15:51
PROVIDERS: ADMIT Student in an Organized Health Care Education/Training Program; ATTEND Student in an Organized Health Care Education/Training Program